=== PATIENT | male | born 1955 | race Caucasian/White ===

== ENCOUNTER 2017-11-22 16:00 | Inpatient (IN) | payer OTHER ==
--- NOTE | 2017-11-22 16:31 | RAD ---
PORTABLE AP CHEST RADIOGRAPH: Date: 11-22-17 History: Dyspnea. Comparison: 12-26-11 FINDINGS: Cardiac silhouette and bronchovascular markings are accentuated by shallow depth of inspiration and p ortable technique. There is subsegmental atelectasis seen at each lung base. There is questionable ti ny left pleural effusion. No other interval change. IMPRESSION: Subsegmental bibasilar atelectasis with question of tiny left pleural effusion. POS: [facility]
[2017-11-22 16:49] LABS: Bilirubin Negative (Negative); Blood, Urine Negative (Negative); Clarity CLEAR (Clear); Glucose, Urine (Dipstick) Negative (Negative); Leukocyte Negative (Negative); Nitrite Negative (Negative); Protein, Urine (Dipstick) Negative (Neg-Trace); Specific Gravity, Urine 1.025 (1.002-1.036); pH, Urine 6.5 (5.0-9.0)
[2017-11-22 16:50] LABS: Hemoglobin 15.6 g/dL (14.0-18.0); Mean Corpuscular HGB CONC 32.7 g/dL (32.0-36.0); Mean Corpuscular Hemoglobin 30.9 pg (27.0-31.0); Mean Corpuscular Volume 94.6 fl (80.0-94.0); Mean Platelet Volume 7.1 fL (7.4-10.4); Platelet Count 237 thou/uL (130-400); RBC Distribution Width 13.9 % (11.5-14.5); Red Blood Cell (RBC) Count 5.04 mill/uL (4.70-6.10); White Blood Cell (WBC) Count 7.7 thou/uL (4.8-10.8)
[2017-11-22 17:10] LABS: ALT (SGPT) 21 U/L (8-55); AST (SGOT) 27 U/L (5-34); Albumin 3.4 g/dL (3.4-4.8); Alkaline Phosphatase 80 U/L (40-150); Anion Gap 14 mmol/L (10-20); BUN (Urea Nitrogen) 17 mg/dL (8.4-25.7); Bilirubin, Total 0.6 mg/dL (0.2-1.2); CK (CPK) 243 U/L (30-200); Calc. Creatinine Clearance 0 mL/min (70-130); Calcium 8.5 mg/dL (7.8-10.44); Carbon Dioxide 24 mmol/L (23-31); Chloride 102 mmol/L (98-107); Estimated GFR-MDRD 68; Globulin 2.2 g/dL (2.4-3.5); Glucose 118 mg/dL (80-115); Lipase 18 U/L (8-78); Potassium 3.7 mmol/L (3.5-5.1); Protein, Total 5.6 g/dL (5.8-8.1); Sodium 136 mmol/L (136-145)
[2017-11-22 17:12] LABS: Band 1 % (5-11); Lymphocytes 14 % (21-51); MDiff Complete? YES; Monocytes 14 % (0-10); Neutrophil 65 % (42-75); PLT Morphology Comment Appears Adequate; Reactive Lymphocytes 6 % (0-10)
[2017-11-22 17:14] LABS: CKMB 2.6 ng/mL (0-6.6); Troponin I Less than 0.010 ng/mL (< 0.028)
[2017-11-22] MEDS ORDERED: Acetaminophen 500 MG TAB ONE (17:44)
[2017-11-22] MEDS ORDERED: Oseltamivir 75 MG CAP PO SCH (20:15)
[2017-11-22] MEDS ORDERED: methylPREDNISolone Sod Succ/PF 125 MG/2 ML VIAL ONE (20:32)
[2017-11-22] MEDS ORDERED: Water For Inject, Bacteriostat 30 ML ONE (20:32)
[2017-11-23] MEDS ORDERED: Loratadine 10 MG TAB PO PRN (00:14)
[2017-11-23] MEDS ORDERED: hydrALAZINE 20 MG/ML VIAL SLOW IVP PRN (00:14)
[2017-11-23] MEDS ORDERED: Acetaminophen 325 MG TAB PO PRN (00:14)
[2017-11-23] MEDS ORDERED: Calcium Carbonate 500 MG ChewTAB PO PRN (00:14)
[2017-11-23] MEDS ORDERED: Chloraseptic Spray 180 ml Bottle PO PRN (00:14)
[2017-11-23] MEDS ORDERED: Ondansetron HCl/PF 4 MG/2 ML Vial IVP PRN (00:14)
[2017-11-23] MEDS ORDERED: HYDROcodone/Acetaminophen 5/325 mg Tablet PO PRN (00:14)
[2017-11-23] MEDS ORDERED: Phenergan/Codeine 10-6.25mg/5ml UDCUP PO PRN (00:14)
[2017-11-23] MEDS ORDERED: Benzonatate 100 MG CAP PO PRN (00:14)
[2017-11-23] MEDS ORDERED: Docusate 100 MG CAP PO SCH (00:45)
[2017-11-23] MEDS ORDERED: Famotidine 20 MG TAB PO SCH (00:45)
--- NOTE | 2017-11-23 01:01 | HP ---
CHIEF COMPLAINT: Hypoxia. HISTORY OF PRESENT ILLNESS: This is a 62-year-old pleasant gentleman with a history of asthma, who c omes into the hospital because he monitored his pulse ox in the house and it dropped down as low as 9 1. The patient has been traveling to [place], [place], and finally out here and he felt that he w as coming down with some flu-like symptoms and congestion, so he called his admittance attendant in [place], who treated with Levaquin and prednisone. He felt a little better, but last 3-4 days, his shortness of breath worsened and when he checked his pulse ox started dropping initially from 95 to 91. The p atient went to Dr. Nieto' office who is a primary care physician and he wanted the patient to be admi tted for possible asthma exacerbation and evaluation of the hypoxia. He denies any fever, chills, no diarrhea or dysuria. PAST MEDICAL HISTORY: Significant for GERD, recurrent pneumonia, asthma, gout. PAST SURGICAL HISTORY: Hernia repair, tonsillectomy. PSYCHIATRIC: No previous psych history. SOCIAL HISTORY: Does not smoke, drink, or do recreational drugs. Drinks occasionally. ALLERGIES: PENICILLIN and SHELLFISH. MEDICATIONS: Include allopurinol, neb treatments, Singulair, Nexium, and Advair Diskus. Please refe r ROMAN for further details. FAMILY HISTORY: Negative for diabetes and hypertension. REVIEW OF SYSTEMS: Significant for shortness of breath and hypoxia, otherwise no fever, no chills, n o headache, no appetite, no hearing latencies. Some cough with some whitish sputum production, no ch est pain, no diarrhea, dysuria, or polyuria. No memory or mood changes. No neck pain. PHYSICAL EXAMINATION: VITAL SIGNS: Blood pressure is 107/70, respirations are right now 16, temperature afebrile, and satt ing 97 on 2 liters. The patient, at the doctor's office, was breathing around 24 per minute. GENERAL: The patient right now is lying down in bed in no distress. HEENT: Atraumatic and normocephalic. Pupils are equally, round, and reactive to light. Extraocular movements are intact. Mucous membranes are moist. NECK: Supple. No JVD. CHEST: Coarse breath sounds heard all over, expiratory wheezes heard, some dependent crackles heard. HEART: S1, S2 normal. No murmurs or gallops. ABDOMEN: Soft. EXTREMITIES: No cyanosis, clubbing, or edema. Distal pulses present. NEUROLOGIC: Alert, awake, oriented. No cranial deficits. No sensorimotor deficits. LABORATORY DATA: Potassium is 3.7, creatinine is 1.09. CK is 243. Troponin is less than 0.01. BNP is 23.2. WBC count is 7.7, hemoglobin is 15.6. UA is negative. Chest x-ray shows atelectasis with some left pleural effusion. ASSESSMENT AND PLAN: 1. Asthma exacerbation secondary to flu A. We will do IV steroids, antibiotics, Tamiflu, DuoNebs, s ymptomatic treatment for the cough. Consult Dr. Lo for further recommendations. 2. Acute respiratory failure with hypoxia secondary to asthma exacerbation secondary to flu A. We w ill do the same treatment and admit the patient to telemetry and monitor the patient. 3. Gout appears to be stable. 4. Gastroesophageal reflux disease appears to be stable. I will work with the consultants domenic oakes for the patient.
[2017-11-23 05:43] LABS: #Lymphocytes 0.3 thou/uL (1.20-3.40); #Monocytes 0.1 thou/uL (0.11-0.59); #Neutrophils 3.3 thou/uL (1.40-6.50); %Basophils 0.2 % (0.0-1.0); %Eosinophils 0.2 % (0.0-10.0); %Lymphocytes 7.1 % (21.0-51.0); %Monocytes 3.5 % (0.0-10.0); Mean Corpuscular HGB CONC 33.5 g/dL (32.0-36.0); Mean Corpuscular Hemoglobin 31.6 pg (27.0-31.0); Mean Corpuscular Volume 94.3 fl (80.0-94.0); Mean Platelet Volume 7.2 fL (7.4-10.4); Platelet Count 210 thou/uL (130-400); RBC Distribution Width 13.6 % (11.5-14.5); Red Blood Cell (RBC) Count 5.07 mill/uL (4.70-6.10); White Blood Cell (WBC) Count 3.7 thou/uL (4.8-10.8)
[2017-11-23 06:26] LABS: Anion Gap 13 mmol/L (10-20); BUN (Urea Nitrogen) 16 mg/dL (8.4-25.7); Calc. Creatinine Clearance 0 mL/min (70-130); Calcium 8.6 mg/dL (7.8-10.44); Carbon Dioxide 23 mmol/L (23-31); Chloride 103 mmol/L (98-107); Estimated GFR-MDRD 71; Glucose 147 mg/dL (80-115); Potassium 4.2 mmol/L (3.5-5.1); Sodium 135 mmol/L (136-145)
[2017-11-23] MEDS: Sodium Chloride 0.9% 1,000 ML IV SCH ×2 (08:25→12:07)
[2017-11-23] MEDS: Docusate 100 MG CAP PO SCH ×3 (08:33→20:56)
[2017-11-23] MEDS: Oseltamivir 75 MG CAP PO SCH ×2 (08:33→20:54)
[2017-11-23] MEDS: Famotidine 20 MG TAB PO SCH ×2 (08:37→20:54)
[2017-11-23] MEDS ORDERED: Famotidine 20 MG TAB ONE (08:55)
[2017-11-23] MEDS ORDERED: Allopurinol 100 MG TAB PO SCH (09:00)
--- NOTE | 2017-11-23 13:29 | CON ---
DATE OF CONSULTATION: 11/23/2017 CONSULTING PHYSICIAN: Dr. Roa REASON FOR CONSULTATION: Asthma with exacerbation. HISTORY OF PRESENT ILLNESS: Mr. Calderón is a 62-year-old who became ill around [place]. He has been dealing with upper respiratory type issues, about a week ago this became worse. He saw Dr. Nieto he re locally and was placed on either doxycycline and Levaquin. He has taken both those antibiotics in the last week. Last night he worsen in terms of breathing, wheezing. He had some fever when he cam e in last night. He has been diagnosed with type A flu. PAST MEDICAL HISTORY: 1. Chronic persistent asthma. 2. Gastroesophageal reflux. 3. 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 4. Gout. PAST SURGICAL HISTORY: Hernia repair, tonsillectomy. SOCIAL HISTORY: Nonsmoker, does not consume alcohol. He works for [employer]. ALLERGIES: PENICILLINS and SHELLFISH. MEDICATIONS PRIOR TO ADMISSION: Allopurinol, Singulair, Nexium, Advair Diskus and nebulization treat ments. FAMILY MEDICAL HISTORY: Negative for asthma. REVIEW OF SYSTEMS: Twelve point review of systems otherwise, negative. PHYSICAL EXAMINATION: VITAL SIGNS: Temperature 98.1, pulse 86, respiration 24, O2 sat 100% on 2 liters, blood pressure 140 /86. GENERAL: He is awake and alert and in no distress. HEENT: Pupils react, sclera anicteric. Oropharynx clear. NECK: Without adenopathy, JVD, or bruits. LUNGS: Lungs have diffuse bilateral wheezing, worse on expiration. No accessory muscle use. CARDIOVASCULAR: S1, S2 regular, without murmur. ABDOMEN: Soft and nontender. EXTREMITIES: No clubbing, cyanosis, or edema. LAB AND X-RAY FINDINGS: Sodium 135, potassium 4.2, chloride 103, CO2 23, BUN 16, creatinine 1.1, glu cose 147. White blood cell count 3.7, hematocrit 47.8, platelet count 210. Chest x-ray shows some chronic interstitial changes bilaterally, which are old. I did review old med ica records from [facility], where he spends half of his time. ASSESSMENT: 1. Asthma exacerbation, aggravated by influenza type A. 2. Type A influenza. PLAN: Supportive care with breathing treatments, IV steroids, and Tamiflu. I will put him back on h is routine asthma medications. I would think he could probably be discharged by tomorrow if he does okay today.
[2017-11-23 16:17] VITALS: BMI 28.0
--- NOTE | 2017-11-23 18:21 | PDOC.PN ---
- Subjective Encounter Start Date: 11/23/17 Encounter Start Time: 18:05 Subjective: f/u asthma exacerbation due to Influenza A + on Levaquin and Tamiflu. -: Overall feeling better. Less SOB and off O2 support. - Objective MAR Reviewed: Yes Vital Signs & Weight: Vital Signs (12 hours) Temp Pulse Resp BP Pulse Ox 11/23/17 15:42 97.6 F 77 20 141/84 H 93 L 11/23/17 12:52 98.1 F 86 24 H 140/86 100 11/23/17 09:01 70 136/85 11/23/17 08:46 97.7 F 67 20 129/86 99 11/23/17 08:00 97.7 F 67 20 Weight Weight 213 lb 1 oz Result Diagrams: 11/23/17 05:18 11/23/17 05:18 Radiology Reviewed by me: Yes (PCXR - subsegmental bibasilar atelectasis) EKG Reviewed by me: Yes (Tele - SR) Phys Exam - Physical Examination Constitutional: NAD HEENT: PERRLA, oral pharynx no lesions Neck: no JVD, supple few scattered coarse sounds Respiratory: no wheezing Cardiovascular: RRR Gastrointestinal: soft, non-tender, no distention, positive bowel sounds Musculoskeletal: no edema, pulses present Neurological: normal sensation, moves all 4 limbs Psychiatric: A&O x 3 Skin: normal turgor, cap refill <2 seconds Dx/Plan (1) Acute respiratory failure with hypoxia Code(s): J96.01 - ACUTE RESPIRATORY FAILURE WITH HYPOXIA Status: Acute Comment: Secondary to #1, improved and resolving (2) Asthma exacerbation Code(s): J45.901 - UNSPECIFIED ASTHMA WITH (ACUTE) EXACERBATION Status: Acute Comment: Improved, continue Solumedrol, Duonebs, Levaquin (3) Influenza A Code(s): J10.1 - FLU DUE TO OTH IDENT INFLUENZA VIRUS W OTH RESP MANIFEST Status: Acute Comment: Continue Tamiflu 75mg BID - Plan continue antibiotics, respiratory therapy, out of bed/ambulate, DVT proph w/SCDs Stable overall -: continue Tamiflu 75mg BID -: O2 prn, wean as tolerated -: Continue Solumedrol and Duonebs -: Likely home in am * .
[2017-11-23] MEDS: Mometasone/Formoterol 120 PUFF INHALER INH SCH (20:40)
[2017-11-23] MEDS ORDERED: Montelukast Sodium 10 mg Tablet PO SCH (21:00)
[2017-11-24] MEDS: Mometasone/Formoterol 120 PUFF INHALER INH SCH (07:48)
[2017-11-24 07:59] VITALS: BP 146/86
[2017-11-24 08:14] VITALS: TEMP 97.4
[2017-11-24] MEDS: Sodium Chloride 0.9% 1,000 ML IV SCH (08:47)
[2017-11-24] MEDS ORDERED: Allopurinol 100 MG TAB PO SCH (09:00)
[2017-11-24] MEDS ORDERED: Azelastine 137 MCG/Spray 30 ML NS SCH (09:00)
[2017-11-24] MEDS ORDERED: Montelukast Sodium 10 mg Tablet PO SCH (09:00)
[2017-11-24] MEDS ORDERED: Fluticasone Propionate Nasal Spray 16 gm Bottle NASAL SCH (09:00)
[2017-11-24] MEDS: Docusate 100 MG CAP PO SCH (09:13)
[2017-11-24] MEDS: Famotidine 20 MG TAB PO SCH (09:13)
[2017-11-24] MEDS: Oseltamivir 75 MG CAP PO SCH (09:14)
--- NOTE | 2017-11-24 10:57 | PRG ---
DATE OF SERVICE: 11/24/2017 SUBJECTIVE: Mr. Calderón is better and wants to go home. OBJECTIVE: VITAL SIGNS: On exam, his temperature is 97.4, pulse 78, respirations 20, O2 saturation 97%. HEENT: Unremarkable. NECK: No JVD. CHEST: Clear except for some mild wheezing. CARDIAC: S1 and S2 regular. ABDOMEN: Soft. EXTREMITIES: No edema. ASSESSMENT: Asthma with exacerbation related to influenza. PLAN: I think he is stable to go home on a tapered dose of steroids and finish out his course of Lev aquin and Tamiflu. He should follow up in my office next week.
--- NOTE | 2017-11-24 11:34 | DIS ---
DATE OF ADMISSION: 11/22/2017 DATE OF DISCHARGE: 11/24/2017 DISCHARGE DIAGNOSES: 1. Status post acute hypoxemic respiratory failure secondary to #2, resolving. 2. Asthma exacerbation secondarily to influenza A. 3. Influenza A positive. CONSULTATION: Dr. Coates with Pulmonology Service. PERTINENT LABORATORY DATA AND X-RAY FINDINGS: Basic metabolic profile within normal limits. Lactic acid level 1.6. LFTs within normal limits. Troponin I negative x1. BNP 23. CBC showed white blood cell count ranging between 3.7-7.7. Influenza A antigen positive on 11/22/2017. Portable chest x-r ay dated 11/22/2017 showed bibasilar atelectasis. HOSPITAL COURSE: The patient was placed on observation on the medical unit after presenting with inc reased cough, shortness of breath, and mild hypoxemia. The patient with known history of asthma exac erbated after exposure to influenza A. The patient received IV Levaquin, Tamiflu, Solu-Medrol, and b ronchodilator therapy. The patient was evaluated by the Pulmonology Service with recommendations for general and pulmonary supportive measures. The patient transitioned off oxygen supplementation, gerardo ntaining O2 saturations in the mid 90% range on room air. The patient overall clinically stabilized with general pulmonary supportive measures and ready for discharge on 11/24/2017. DISCHARGE MEDICATIONS: 1. Tamiflu 75 mg 1 tab p.o. b.i.d. x7 doses. 2. Levaquin 500 mg 1 tab p.o. daily x5 days. 3. Prednisone 10 mg 2 tabs p.o. b.i.d. x3 days, followed by 3 tabs p.o. daily x 3 days, followed by 2 tabs p.o. daily x 3 days, followed by 1 tab p.o. daily x3 days. 4. Allopurinol 200 mg 1 tab p.o. daily. 5. Azelastine 0.15% 2 sprays inhaled daily. 6. Beclomethasone dipropionate 2 inhalations daily. 7. Cetirizine 10 mg 1 tab p.o. daily. 8. Nexium 40 mg one tab p.o. daily. 9. Advair Diskus 1 inhalation b.i.d. 10. Levalbuterol 1.25 mg/0.5 mL nebulized daily p.r.n. 11. Singulair 10 mg one tab p.o. daily. FOLLOWUP: The patient may follow up with his primary care provider, Dr. Reyes Nieto within 7 days of discharge. The patient may follow up with Dr. Trace Coates with Pulmonology Service and to call hi s office for appointment time and date. CONDITION ON DISCHARGE: Stable. ACTIVITY: Ad mamta. DIET: Heart healthy. CODE STATUS: FULL. DISPOSITION: Home, 11/24/2017.
== END 2017-11-24 11:40 | disposition home or self-care (01) | DRG 193 ==
LOC: ERS 16:00 → OBSVTOIN 20:20 → ERHOLD 20:20 → INTOOBSV 20:20 → 2SW 11-23 15:10
PROVIDERS: ADMIT Internal Medicine; ATTEND Internal Medicine
DX: J10.1 Influenza due to other identified influenza virus with other respiratory manifestations (principal); J96.01 Acute respiratory failure with hypoxia; J45.901 Unspecified asthma with (acute) exacerbation; M10.9 Gout, unspecified; K21.9 Gastro-esophageal reflux disease without esophagitis; Z88.0 Allergy status to penicillin; Z91.013 Allergy to seafood
CPT/HCPCS: 36415; 71045; 80048; 80053; 81003; 82550; 82553; 83605; 83690; 83735; 83880; 84484; 85025; 93005; 94640; 94760; 96361; 96365; 96366; 96367; 96375; A4216; J1956; J2920; J2930; J7050; J7620

== ENCOUNTER 2018-02-25 19:19 | Emergency (ER) | payer OTHER | END 2018-02-25 20:06 | disposition home or self-care (01) | LOC: SCSER 19:19 | DX: B02.9 Zoster without complications (principal); J45.909 Unspecified asthma, uncomplicated; K21.9 Gastro-esophageal reflux disease without esophagitis; M10.9 Gout, unspecified | CPT/HCPCS: 99283 ==